=== PATIENT | male | born 1990 | race African-American/Black ===

== ENCOUNTER 2020-12-30 05:37 | Emergency (ER) | payer MEDICAID, OTHER ==
[~2020-12-30] VITALS: Ht 177.8 cm; Wt 100.0 kg
[2020-12-30 05:57] VITALS: BP 148/55
[2020-12-30 08:15] LABS: BASOPHILS % 0.5 % (0.0-2.0); EOSINOPHILS % 2.4 % (0.0-5.0); HEMATOCRIT. 45.9 % (42.0-52.0); HEMOGLOBIN. 14.9 g/dL (14.0-18.0); LYMPHOCYTES % 33.8 % (20.0-50.0); MEAN CORPUSCULAR HEMOGLOBIN 28.6 pg (28.0-32.0); MEAN CORPUSCULAR VOLUME 87.7 fL (80.0-94.0); MEAN PLATELET VOLUME 8.3 fl (7.4-10.4); MONOCYTES % 8.4 % (2.0-8.0); NEUTROPHILS % 54.9 % (40.0-76.0); PLATELET 247 x1000/uL (130-400); RED BLOOD CELL COUNT 5.23 mill/uL (4.7-6.1); RED CELL DISTRIBUTION WIDTH 15.4 % (11.6-14.6)
[2020-12-30 08:19] LABS: CHLORIDE 104 mEq/L (98-107)
== END 2020-12-30 10:33 | disposition left against medical advice (07) ==
LOC: ER 05:37
DX: R07.89 Other chest pain (principal)
CPT/HCPCS: 36415; 80053; 84484; 85025; 93005; 99284

== ENCOUNTER 2020-12-30 11:10 | Inpatient (IN) | payer MEDICAID ==
[~2020-12-30] VITALS: Ht 175.3 cm; Wt 100.2 kg
[2020-12-30 12:27] LABS: BASOPHILS % 0.3 % (0.0-2.0); EOSINOPHILS % 0.7 % (0.0-5.0); HEMATOCRIT. 43.4 % (42.0-52.0); HEMOGLOBIN. 14.4 g/dL (14.0-18.0); LYMPHOCYTES % 25.5 % (20.0-50.0); MEAN CORPUSCULAR HEMOGLOBIN 31.2 pg (28.0-32.0); MEAN PLATELET VOLUME 8.6 fl (7.4-10.4); MONOCYTES % 9.8 % (2.0-8.0); NEUTROPHILS % 63.7 % (40.0-76.0); PLATELET 293 x1000/uL (130-400); RED BLOOD CELL COUNT 4.62 mill/uL (4.7-6.1); RED CELL DISTRIBUTION WIDTH 14.9 % (11.6-14.6)
[2020-12-30 12:33] LABS: CHLORIDE 104 mEq/L (98-107)
[2020-12-30] MEDS ORDERED: ENOXAPARIN 100MG/ML SYR SUBCUT ONE (13:00)
[2020-12-30] MEDS ORDERED: NITROGLYCERIN 0.4MG TABLET SL SL ONE (13:00)
[2020-12-30] MEDS ORDERED: ASPIRIN 81MG TABLET PO ONE (13:15)
[2020-12-30] MEDS ORDERED: POTASSIUM CHLORIDE 20MEQ TABLET SR PO NR (14:00)
[2020-12-30 14:31] LABS: CLARITY URINE CLEAR (CLEAR); COLOR URINE DARK YELLOW (YELLOW); KETONES URINE 1+ (NEGATIVE); LEUKOCYTE ESTERASE URINE NEGATIVE (NEGATIVE); NITRITE URINE NEGATIVE (NEGATIVE); OCCULT BLOOD URINE NEGATIVE (NEGATIVE); PH URINE 5.5 (4.5-8.0); PROTEIN URINE 2+ (NEGATIVE); SPECIFIC GRAVITY URINE 1.035 (1.005-1.030)
[2020-12-30 14:54] LABS: *AMPHETAMINES SCREEN URINE PRESUMTIVE POSITIVE (NEGATIVE); *BARBITURATES SCREEN URINE NEGATIVE (NEGATIVE); *BENZODIAZEPINES SCREEN URINE NEGATIVE (NEGATIVE); CANNABINOID URINE SCREEN PRESUMTIVE POSITIVE (NEGATIVE); OPIATES URINE SCREEN NEGATIVE (NEGATIVE); PHENCYCLIDINE URINE SCREEN PRESUMTIVE POSITIVE (NEGATIVE)
[2020-12-30 14:55] LABS: *COCAINE SCREEN URINE NEGATIVE (NEGATIVE); METHADONE URINE SCREEN NEGATIVE (NEGATIVE)
[2020-12-30] MEDS ORDERED: FUROSEMIDE 20MG TABLET PO SCH (15:00)
[2020-12-30] MEDS ORDERED: MAGNESIUM/ALUMINUM HYDROXIDE/SIMETHICONE 30ML UDC PO PRN (15:30)
[2020-12-30] MEDS ORDERED: GUAIFENESIN 200MG/10ML SUGAR FREE UDC PO PRN (15:30)
[2020-12-30] MEDS ORDERED: IPRATROPIUM/ALBUTEROL 0.5-3(2.5)MG/3ML NEB NEB PRN (15:30)
[2020-12-30] MEDS ORDERED: ONDANSETRON HCL 4MG/2ML INJ IV PRN (15:30)
[2020-12-30] MEDS ORDERED: ZOLPIDEM TARTRATE 5MG TABLET PO PRN (15:30)
[2020-12-30] MEDS ORDERED: KETOROLAC 15MG/ML VIAL IV PRN (15:30)
[2020-12-30] MEDS ORDERED: ENOXAPARIN 40MG/0.4ML SYR SUBCUT SCH (15:30)
[2020-12-30] MEDS ORDERED: CLONIDINE 0.1MG TABLET PO PRN (15:30)
[2020-12-30] MEDS ORDERED: DOCUSATE SODIUM 100MG CAPSULE PO PRN (15:30)
[2020-12-30] MEDS ORDERED: NA PHOS,M-B/NA PHOS,DI-BA ENEMA 118ML PR PRN (15:30)
[2020-12-30] MEDS ORDERED: ACETAMINOPHEN 325MG TABLET PO PRN ×2 (15:30)
[2020-12-30 16:04] LABS: FERRITIN 201 ng/mL (22-322)
[2020-12-30 19:17] LABS: FOLIC ACID (FOLATE) SERUM >20 ng/mL ng/mL (>5.38)
[2020-12-30 19:28] LABS: VITAMIN B12 SERUM 433 pg/mL (211-911)
[2020-12-30 21:00] VITALS: BP 110/49
[2020-12-30] MEDS ORDERED: ENOXAPARIN 100MG/ML SYR SUBCUT SCH (22:30)
[2020-12-30] MEDS: NITROGLYCERIN OINT 1GM/INCH UDPKT TD SCH (22:53)
[2020-12-30] MEDS: FAMOTIDINE 20MG TABLET PO SCH (22:53)
[2020-12-31] VITALS: BP 99/58
[2020-12-31] MEDS ORDERED: ENOXAPARIN 100MG/ML SYR SUBCUT SCH ×2 (01:00→10:00)
[2020-12-31 04:00] VITALS: BP 91/44
[2020-12-31] MEDS: NITROGLYCERIN OINT 1GM/INCH UDPKT TD SCH (06:00)
[2020-12-31 07:28] LABS: BASOPHILS % 0.3 % (0.0-2.0); EOSINOPHILS % 2.2 % (0.0-5.0); HEMATOCRIT. 41.1 % (42.0-52.0); HEMOGLOBIN. 13.7 g/dL (14.0-18.0); LYMPHOCYTES % 32.7 % (20.0-50.0); MEAN CORPUSCULAR HEMOGLOBIN 31.8 pg (28.0-32.0); MEAN CORPUSCULAR VOLUME 95.5 fL (80.0-94.0); MEAN PLATELET VOLUME 8.9 fl (7.4-10.4); MONOCYTES % 10.6 % (2.0-8.0); NEUTROPHILS % 54.2 % (40.0-76.0); PLATELET 269 x1000/uL (130-400); RED BLOOD CELL COUNT 4.31 mill/uL (4.7-6.1); RED CELL DISTRIBUTION WIDTH 15.5 % (11.6-14.6)
[2020-12-31 07:31] LABS: INR 1.1; PROTHROMBIN TIME 11.6 sec (9.6-11.0)
[2020-12-31 07:38] LABS: CHLORIDE 109 mEq/L (98-107)
[2020-12-31 07:47] LABS: PHOSPHORUS 3.5 mg/dL (2.5-4.9)
[2020-12-31] MEDS ORDERED: ASPIRIN 81MG EC TABLET PO SCH (09:00)
[2020-12-31] MEDS: FAMOTIDINE 20MG TABLET PO SCH (09:13)
[2020-12-31] MEDS ORDERED: POTASSIUM CHLORIDE 20MEQ TABLET SR PO NR (09:30)
== END 2020-12-31 10:30 | disposition left against medical advice (07) | DRG 190 ==
LOC: ER 11:10 → 7EST 14:18 → EDBEDREQ 14:20 → EDBEDREQTM 14:20 → EDBEDREQSVC 17:57 → ENRESERV 19:14
PROVIDERS: ADMIT Internal Medicine; ATTEND Internal Medicine
DX: I21.4 Non-ST elevation (NSTEMI) myocardial infarction (principal); I42.9 Cardiomyopathy, unspecified; I25.10 Atherosclerotic heart disease of native coronary artery without angina pectoris; F10.10 Alcohol abuse, uncomplicated; E87.6 Hypokalemia; E80.6 Other disorders of bilirubin metabolism; F15.10 Other stimulant abuse, uncomplicated; Y90.9 Presence of alcohol in blood, level not specified; T45.516A Underdosing of anticoagulants, initial encounter; R79.89 Other specified abnormal findings of blood chemistry; I51.7 Cardiomegaly; F16.10 Hallucinogen abuse, uncomplicated; F12.10 Cannabis abuse, uncomplicated; Z53.29 Procedure and treatment not carried out because of patient's decision for other reasons; I25.2 Old myocardial infarction; Y92.89 Other specified places as the place of occurrence of the external cause; Z91.19 Patient's noncompliance with other medical treatment and regimen; Z71.51 Drug abuse counseling and surveillance of drug abuser
CPT/HCPCS: 36415; 71045; 80048; 80053; 80061; 80305; 81003; 82607; 82728; 82746; 83036; 83540; 83550; 83735; 83880; 84100; 84484; 85025; 93005; 93970; 99285; J1650

== ENCOUNTER 2021-10-08 21:55 | Inpatient (IN) | payer MEDICAID ==
[~2021-10-08] VITALS: Ht 175.3 cm; Wt 120.7 kg
[2021-10-08 22:51] LABS: BASOPHILS % 0.6 % (0.0-2.0); EOSINOPHILS % 0.9 % (0.0-5.0); HEMATOCRIT. 37.3 % (42.0-52.0); HEMOGLOBIN. 11.9 g/dL (14.0-18.0); LYMPHOCYTES % 24.9 % (20.0-50.0); MEAN CORPUSCULAR HEMOGLOBIN 29.6 pg (28.0-32.0); MEAN PLATELET VOLUME 8.2 fl (7.4-10.4); MONOCYTES % 8.5 % (2.0-8.0); NEUTROPHILS % 65.1 % (40.0-76.0); PLATELET 380 x1000/uL (130-400); RED BLOOD CELL COUNT 4.01 mill/uL (4.7-6.1); RED CELL DISTRIBUTION WIDTH 19.3 % (11.6-14.6)
[2021-10-08] MEDS ORDERED: ASPIRIN 325MG EC TABLET PO ONE (23:00)
[2021-10-08] MEDS ORDERED: FUROSEMIDE 100MG/10ML VIAL IVP ONE (23:00)
[2021-10-08 23:01] LABS: INR 1.4; PROTHROMBIN TIME 14.4 sec (9.6-11.0)
[2021-10-08 23:06] LABS: CHLORIDE 99 mEq/L (98-107)
[2021-10-08 23:16] LABS: ETHANOL BLOOD < 10 mg/dL
[2021-10-08] MEDS ORDERED: MORPHINE SULFATE 4 MG/ML CPJ (NOT FOR IM USE) IV ONE (23:30)
[2021-10-09] VITALS (8 sets, daily range): BP systolic 23–156; BP diastolic 34–92
[2021-10-09 00:28] LABS: CLARITY URINE CLEAR (CLEAR); COLOR URINE YELLOW (YELLOW); KETONES URINE NEGATIVE (NEGATIVE); LEUKOCYTE ESTERASE URINE NEGATIVE (NEGATIVE); NITRITE URINE NEGATIVE (NEGATIVE); OCCULT BLOOD URINE NEGATIVE (NEGATIVE); PROTEIN URINE 1+ (NEGATIVE); SPECIFIC GRAVITY URINE 1.018 (1.005-1.030)
[2021-10-09 00:48] LABS: *AMPHETAMINES SCREEN URINE PRESUMTIVE POSITIVE (NEGATIVE); *BARBITURATES SCREEN URINE NEGATIVE (NEGATIVE); *BENZODIAZEPINES SCREEN URINE NEGATIVE (NEGATIVE); *COCAINE SCREEN URINE NEGATIVE (NEGATIVE); CANNABINOID URINE SCREEN PRESUMTIVE POSITIVE (NEGATIVE); METHADONE URINE SCREEN NEGATIVE (NEGATIVE); OPIATES URINE SCREEN NEGATIVE (NEGATIVE); PHENCYCLIDINE URINE SCREEN NEGATIVE (NEGATIVE)
[2021-10-09] MEDS ORDERED: MORPHINE SULFATE 2 MG/ML CPJ (NOT FOR IM USE) IV NR (08:30)
[2021-10-09] MEDS ORDERED: MAGNESIUM/ALUMINUM HYDROXIDE/SIMETHICONE 30ML UDC PO PRN (09:30)
[2021-10-09] MEDS ORDERED: DOCUSATE SODIUM 100MG CAPSULE PO PRN (09:30)
[2021-10-09] MEDS ORDERED: IPRATROPIUM/ALBUTEROL 0.5-3(2.5)MG/3ML NEB HHN PRN (09:30)
[2021-10-09] MEDS ORDERED: ENOXAPARIN 40MG/0.4ML SYR SUBCUT SCH (09:30)
[2021-10-09] MEDS ORDERED: CLONIDINE 0.1MG TABLET PO PRN (09:30)
[2021-10-09] MEDS ORDERED: ACETAMINOPHEN 325MG TABLET PO PRN (09:30)
[2021-10-09] MEDS: FUROSEMIDE 40MG/4ML VIAL IVP SCH (11:02)
[2021-10-09] MEDS ORDERED: FURO80TA3 MT (11:10)
[2021-10-09] MEDS ORDERED: RIVA20TA MT (11:10)
[2021-10-09] MEDS: HYDROCODONE/ACETAMINOPHEN 5/325MG TABLET PO PRN (11:19)
[2021-10-09] MEDS ORDERED: ONDANSETRON HCL 4MG/2ML INJ IV PRN (17:30)
[2021-10-09] MEDS: ONDANSETRON HCL 4MG/2ML INJ IV PRN ×2 (17:34→23:01)
[2021-10-09] MEDS: MORPHINE SULFATE 2 MG/ML CPJ (NOT FOR IM USE) IV PRN ×2 (17:34→23:02)
[2021-10-09] MEDS: CARVEDILOL 6.25 MG TABLET PO SCH (20:27)
[2021-10-09] MEDS ORDERED: NALOXONE HCL 0.4MG/ML VIAL IV PRN (21:45)
[2021-10-10] VITALS (29 sets, daily range): BP systolic 94–180; BP diastolic 28–106
[2021-10-10] MEDS: MORPHINE SULFATE 2 MG/ML CPJ (NOT FOR IM USE) IV PRN ×5 (03:00→22:46)
[2021-10-10] MEDS: DEXTROSE 50% WATER 50ML SYRINGE IV PRN ×2 (05:05→05:39)
[2021-10-10] MEDS ORDERED: DEXT 10% WATER 1,000 ML IV SCH (06:00)
[2021-10-10 06:25] LABS: BASOPHILS % 0.6 % (0.0-2.0); EOSINOPHILS % 0.5 % (0.0-5.0); HEMATOCRIT. 40.3 % (42.0-52.0); HEMOGLOBIN. 12.9 g/dL (14.0-18.0); LYMPHOCYTES % 15.7 % (20.0-50.0); MEAN CORPUSCULAR HEMOGLOBIN 29.8 pg (28.0-32.0); MEAN CORPUSCULAR VOLUME 93.2 fL (80.0-94.0); MEAN PLATELET VOLUME 8.3 fl (7.4-10.4); MONOCYTES % 4.8 % (2.0-8.0); NEUTROPHILS % 78.4 % (40.0-76.0); PLATELET 327 x1000/uL (130-400); RED BLOOD CELL COUNT 4.33 mill/uL (4.7-6.1); RED CELL DISTRIBUTION WIDTH 19.2 % (11.6-14.6)
[2021-10-10 06:58] LABS: PHOSPHORUS 5.5 mg/dL (2.5-4.9); T4 FREE 1.18 ng/dL (0.76-1.46)
[2021-10-10] MEDS: FUROSEMIDE 40MG/4ML VIAL IVP SCH (08:15)
[2021-10-10] MEDS: CARVEDILOL 6.25 MG TABLET PO SCH ×2 (08:15→20:56)
[2021-10-10] MEDS: ONDANSETRON HCL 4MG/2ML INJ IV PRN ×2 (08:18→21:23)
[2021-10-10] MEDS ORDERED: ENOXAPARIN 40MG/0.4ML SYR SUBCUT SCH (09:00)
[2021-10-10] MEDS ORDERED: SODIUM BICARBONATE 8.4% 1 MEQ/ML 50ML SYR IV NR (11:24)
[2021-10-10] MEDS ORDERED: DEXTROSE 50% WATER 50ML SYRINGE IV STA (11:24)
[2021-10-10] MEDS ORDERED: INSULIN REGULAR (HUMULIN R) 300UNITS/3ML VIAL IV NR (11:24)
[2021-10-10] MEDS ORDERED: SODIUM POLYSTYRENE SULFONATE 15 G/60 ML BOT PO NR (11:30)
[2021-10-10] MEDS: DEXT 10% WATER 1,000 ML IV SCH (12:00)
[2021-10-10] MEDS ORDERED: CALCIUM CHLORIDE 1,000 MG in DEXT 5% WATER 90 ML IV NR (12:00)
[2021-10-10] MEDS ORDERED: LIDOCAINE HCL 1% 10 MG/ML 10ML VIAL ONE (12:13)
[2021-10-10] MEDS ORDERED: HEPARIN 1000 UNITS/ML 10ML ONE (12:13)
[2021-10-10 12:33] LABS: BG CARBOXYHEMOGLOBIN 0.9 % (0.5-1.5); BG DEOXYHEMOGLOBIN 5.7 % (0.0-5.0); BG FRACTION INSPIRED OXYGEN 21; BG HCO3 ACT 23.3 mmol/L (22.0-26.0); BG METHEMOGLOBIN 0.3 % (0.0-1.5); BG OXYGEN SATURATION 94.2 % (92.0-98.5); BG OXYHEMOGLOBIN 93.1 % (94.0-97.0); BG PCO2 34.1 mmHg (35.0-45.0); BG PH 7.453 (7.350-7.450); BG PO2 76.1 mmHg (75.0-100.0); BG SAMPLE SITE RIGHT RADIAL; BG TOTAL HEMOGLOBIN 13.9 g/dL (12.0-18.0); BG VENT MODE ROOM AIR
[2021-10-10 16:42] LABS: HEPATITIS B SURFACE ANTIGEN NEGATIVE
[2021-10-10] MEDS: PIPERACILLIN/TAZOBACTAM 3.375 G in DEXTROSE 5% WATER 50 ML IV SCH ×2 (18:14→22:33)
[2021-10-10] MEDS: HYDROCODONE/ACETAMINOPHEN 5/325MG TABLET PO PRN (20:57)
[2021-10-11] VITALS (23 sets, daily range): BP systolic 62–139; BP diastolic 24–98
[2021-10-11] MEDS: MORPHINE SULFATE 2 MG/ML CPJ (NOT FOR IM USE) IV PRN ×6 (02:18→23:25)
[2021-10-11 06:11] LABS: BASOPHILS % 0.2 % (0.0-2.0); EOSINOPHILS % 0.3 % (0.0-5.0); HEMATOCRIT. 37.1 % (42.0-52.0); HEMOGLOBIN. 11.5 g/dL (14.0-18.0); LYMPHOCYTES % 17.4 % (20.0-50.0); MEAN CORPUSCULAR HEMOGLOBIN 28.8 pg (28.0-32.0); MEAN CORPUSCULAR VOLUME 92.5 fL (80.0-94.0); MEAN PLATELET VOLUME 8.2 fl (7.4-10.4); MONOCYTES % 6.9 % (2.0-8.0); NEUTROPHILS % 75.2 % (40.0-76.0); PLATELET 310 x1000/uL (130-400); RED BLOOD CELL COUNT 4.01 mill/uL (4.7-6.1); RED CELL DISTRIBUTION WIDTH 18.8 % (11.6-14.6)
[2021-10-11] MEDS: PIPERACILLIN/TAZOBACTAM 3.375 G in DEXTROSE 5% WATER 50 ML IV SCH ×3 (06:16→21:36)
[2021-10-11] MEDS: DEXT 10% WATER 1,000 ML IV SCH (08:05)
[2021-10-11] MEDS: CARVEDILOL 6.25 MG TABLET PO SCH ×2 (09:07→21:36)
[2021-10-11] MEDS: ENOXAPARIN 30MG/0.3ML SYR SUBCUT SCH ×2 (09:07→21:36)
[2021-10-11] MEDS ORDERED: METHYLPREDNISOLONE SOD SUCC 40 MG/ML VIAL IV SCH (09:45)
[2021-10-11] MEDS: FUROSEMIDE 40MG/4ML VIAL IVP SCH ×2 (10:15→17:20)
[2021-10-11] MEDS: BLOOD SUGAR DIAGNOSTIC STRIP TEST SCH ×2 (20:27→23:33)
[2021-10-12] VITALS (13 sets, daily range): BP systolic 53–168; BP diastolic 27–85
[2021-10-12] MEDS: BLOOD SUGAR DIAGNOSTIC STRIP TEST SCH ×5 (04:00→20:47)
[2021-10-12] MEDS: MORPHINE SULFATE 2 MG/ML CPJ (NOT FOR IM USE) IV PRN ×5 (04:03→23:16)
[2021-10-12] MEDS: PIPERACILLIN/TAZOBACTAM 3.375 G in DEXTROSE 5% WATER 50 ML IV SCH ×3 (05:41→21:09)
[2021-10-12 06:11] LABS: BASOPHILS % 0.1 % (0.0-2.0); HEMATOCRIT. 35.9 % (42.0-52.0); HEMOGLOBIN. 11.4 g/dL (14.0-18.0); LYMPHOCYTES % 10.2 % (20.0-50.0); MEAN CORPUSCULAR VOLUME 91.1 fL (80.0-94.0); MEAN PLATELET VOLUME 8.4 fl (7.4-10.4); MONOCYTES % 5.6 % (2.0-8.0); NEUTROPHILS % 84.1 % (40.0-76.0); PLATELET 284 x1000/uL (130-400); RED BLOOD CELL COUNT 3.94 mill/uL (4.7-6.1); RED CELL DISTRIBUTION WIDTH 19.3 % (11.6-14.6)
[2021-10-12 06:31] LABS: CHLORIDE 87 mEq/L (98-107); TOTAL IRON BINDING CAPACITY 435 ug/dL (250-450)
[2021-10-12 06:41] LABS: FERRITIN 131 ng/mL (22-322)
[2021-10-12 06:54] LABS: VITAMIN B12 SERUM >2000 pg/mL pg/mL (211-911)
[2021-10-12] MEDS: DEXT 10% WATER 1,000 ML IV SCH (08:00)
[2021-10-12] MEDS: FUROSEMIDE 40MG/4ML VIAL IVP SCH ×2 (08:45→16:46)
[2021-10-12] MEDS: ENOXAPARIN 30MG/0.3ML SYR SUBCUT SCH ×2 (08:45→21:13)
[2021-10-12] MEDS: CARVEDILOL 6.25 MG TABLET PO SCH ×2 (08:46→21:00)
[2021-10-12] MEDS: HYDROCODONE/ACETAMINOPHEN 5/325MG TABLET PO PRN (21:09)
[2021-10-13] VITALS: BP 147/92
[2021-10-13] MEDS: BLOOD SUGAR DIAGNOSTIC STRIP TEST SCH ×6 (00:48→20:00)
[2021-10-13 04:00] VITALS: BP 104/75
[2021-10-13] MEDS: MORPHINE SULFATE 2 MG/ML CPJ (NOT FOR IM USE) IV PRN ×7 (04:31→23:31)
[2021-10-13] MEDS: PIPERACILLIN/TAZOBACTAM 3.375 G in DEXTROSE 5% WATER 50 ML IV SCH ×3 (06:00→23:34)
[2021-10-13] MEDS ORDERED: *PATIENT'S OWN MEDICATION STORAGE XX SCH (07:15)
[2021-10-13 08:00] VITALS: BP 134/83
[2021-10-13] MEDS: DEXT 10% WATER 1,000 ML IV SCH (08:00)
[2021-10-13] MEDS: ENOXAPARIN 30MG/0.3ML SYR SUBCUT SCH ×2 (08:55→23:41)
[2021-10-13] MEDS: CARVEDILOL 6.25 MG TABLET PO SCH ×2 (08:55→23:30)
[2021-10-13] MEDS: FUROSEMIDE 40MG/4ML VIAL IVP SCH ×2 (08:56→15:41)
[2021-10-13] MEDS: IRON SUCROSE COMPLEX 100 MG/5 ML ML IV SCH (12:00)
[2021-10-13] MEDS: HYDROCODONE/ACETAMINOPHEN 5/325MG TABLET PO PRN ×2 (15:51→16:45)
[2021-10-13 20:00] VITALS: BP 136/85
[2021-10-13 20:58] LABS: BASOPHILS % 0.2 % (0.0-2.0); EOSINOPHILS % 0.2 % (0.0-5.0); HEMATOCRIT. 35.5 % (42.0-52.0); HEMOGLOBIN. 11.4 g/dL (14.0-18.0); LYMPHOCYTES % 21.2 % (20.0-50.0); MEAN CORPUSCULAR HEMOGLOBIN 29.3 pg (28.0-32.0); MEAN CORPUSCULAR VOLUME 91.1 fL (80.0-94.0); MEAN PLATELET VOLUME 8.4 fl (7.4-10.4); MONOCYTES % 9.3 % (2.0-8.0); NEUTROPHILS % 69.1 % (40.0-76.0); PLATELET 291 x1000/uL (130-400)
[2021-10-13 21:09] LABS: CHLORIDE 87 mEq/L (98-107)
[2021-10-13 21:21] LABS: CREATINE KINASE 171 IU/L (39-308)
[2021-10-14] VITALS: BP 125/82
[2021-10-14 04:00] VITALS: BP 108/74
[2021-10-14] MEDS: BLOOD SUGAR DIAGNOSTIC STRIP TEST SCH ×6 (04:00→20:00)
[2021-10-14] MEDS: MORPHINE SULFATE 2 MG/ML CPJ (NOT FOR IM USE) IV PRN ×3 (05:26→14:39)
[2021-10-14] MEDS: PIPERACILLIN/TAZOBACTAM 3.375 G in DEXTROSE 5% WATER 50 ML IV SCH ×3 (05:26→21:23)
[2021-10-14 06:24] LABS: BASOPHILS % 0.1 % (0.0-2.0); EOSINOPHILS % 0.6 % (0.0-5.0); HEMATOCRIT. 36.4 % (42.0-52.0); HEMOGLOBIN. 11.9 g/dL (14.0-18.0); LYMPHOCYTES % 25.3 % (20.0-50.0); MEAN CORPUSCULAR HEMOGLOBIN 29.5 pg (28.0-32.0); MEAN CORPUSCULAR VOLUME 90.2 fL (80.0-94.0); MEAN PLATELET VOLUME 8.6 fl (7.4-10.4); MONOCYTES % 10.8 % (2.0-8.0); NEUTROPHILS % 63.2 % (40.0-76.0); PLATELET 294 x1000/uL (130-400); RED BLOOD CELL COUNT 4.04 mill/uL (4.7-6.1)
[2021-10-14 07:26] LABS: CHLORIDE 90 mEq/L (98-107)
[2021-10-14 08:00] VITALS: BP 132/82
[2021-10-14] MEDS: FUROSEMIDE 40MG/4ML VIAL IVP SCH ×2 (08:48→17:12)
[2021-10-14] MEDS: CARVEDILOL 6.25 MG TABLET PO SCH ×2 (08:48→21:23)
[2021-10-14] MEDS: DEXT 10% WATER 1,000 ML IV SCH (08:49)
[2021-10-14] MEDS: ENOXAPARIN 30MG/0.3ML SYR SUBCUT SCH ×2 (08:49→21:23)
[2021-10-14] MEDS: IRON SUCROSE COMPLEX 100 MG/5 ML ML IV SCH (11:20)
[2021-10-14 12:00] VITALS: BP 122/74
[2021-10-14 16:00] VITALS: BP 149/60
[2021-10-14] MEDS: HYDROCODONE/ACETAMINOPHEN 5/325MG TABLET PO PRN (18:32)
[2021-10-14 20:00] VITALS: BP 116/70
[2021-10-14] MEDS ORDERED: NALOXONE HCL 0.4MG/ML VIAL IV PRN (22:00)
[2021-10-15] VITALS: BP 138/85
[2021-10-15] MEDS: BLOOD SUGAR DIAGNOSTIC STRIP TEST SCH ×6 (00:03→20:00)
[2021-10-15] MEDS: HYDROCODONE/ACETAMINOPHEN 5/325MG TABLET PO PRN ×3 (00:22→19:25)
[2021-10-15 04:00] VITALS: BP 110/86
[2021-10-15] MEDS: PIPERACILLIN/TAZOBACTAM 3.375 G in DEXTROSE 5% WATER 50 ML IV SCH (05:49)
[2021-10-15 08:00] VITALS: BP 108/78
[2021-10-15] MEDS: DEXT 10% WATER 1,000 ML IV SCH (08:00)
[2021-10-15] MEDS ORDERED: LORAZEPAM 1MG TABLET PO NR (08:00)
[2021-10-15] MEDS: CARVEDILOL 6.25 MG TABLET PO SCH ×2 (10:13→20:10)
[2021-10-15] MEDS: FUROSEMIDE 40MG/4ML VIAL IVP SCH ×2 (10:14→17:04)
[2021-10-15] MEDS: ENOXAPARIN 30MG/0.3ML SYR SUBCUT SCH ×2 (10:14→20:13)
[2021-10-15 12:00] VITALS: BP 113/68
[2021-10-15] MEDS: IRON SUCROSE COMPLEX 100 MG/5 ML ML IV SCH (13:49)
[2021-10-15 14:25] LABS: BASOPHILS % 0.2 % (0.0-2.0); EOSINOPHILS % 0.6 % (0.0-5.0); HEMATOCRIT. 36.5 % (42.0-52.0); HEMOGLOBIN. 11.9 g/dL (14.0-18.0); LYMPHOCYTES % 24.4 % (20.0-50.0); MEAN CORPUSCULAR HEMOGLOBIN 29.4 pg (28.0-32.0); MEAN CORPUSCULAR VOLUME 90.2 fL (80.0-94.0); MEAN PLATELET VOLUME 8.5 fl (7.4-10.4); NEUTROPHILS % 66.8 % (40.0-76.0); PLATELET 273 x1000/uL (130-400); RED BLOOD CELL COUNT 4.05 mill/uL (4.7-6.1); RED CELL DISTRIBUTION WIDTH 19.3 % (11.6-14.6)
[2021-10-15 14:55] LABS: CHLORIDE 92 mEq/L (98-107)
[2021-10-15 15:43] VITALS: BP 123/8
[2021-10-15] MEDS ORDERED: POTASSIUM CHLORIDE 20MEQ/PACKET PO NR (16:30)
[2021-10-15 20:00] VITALS: BP 109/70
[2021-10-16] VITALS: BP 113/76
[2021-10-16] MEDS: HYDROCODONE/ACETAMINOPHEN 5/325MG TABLET PO PRN ×3 (01:22→15:55)
[2021-10-16 04:00] VITALS: BP 134/77
[2021-10-16] MEDS: BLOOD SUGAR DIAGNOSTIC STRIP TEST SCH ×6 (04:00→20:00)
[2021-10-16] MEDS: FUROSEMIDE 40MG/4ML VIAL IVP SCH ×2 (09:34→17:00)
[2021-10-16] MEDS: CARVEDILOL 6.25 MG TABLET PO SCH ×2 (09:34→20:15)
[2021-10-16] MEDS: ENOXAPARIN 30MG/0.3ML SYR SUBCUT SCH ×2 (09:35→20:16)
[2021-10-16] MEDS ORDERED: FURO80TA3 MT (14:25)
[2021-10-16] MEDS ORDERED: COR6 PO (14:25)
[2021-10-16] MEDS ORDERED: RIVA20TA MT (14:25)
[2021-10-16 14:46] LABS: BASOPHILS % 0.5 % (0.0-2.0); EOSINOPHILS % 1.2 % (0.0-5.0); HEMATOCRIT. 36.5 % (42.0-52.0); HEMOGLOBIN. 11.9 g/dL (14.0-18.0); LYMPHOCYTES % 21.7 % (20.0-50.0); MEAN CORPUSCULAR HEMOGLOBIN 29.6 pg (28.0-32.0); MEAN PLATELET VOLUME 8.6 fl (7.4-10.4); MONOCYTES % 8.1 % (2.0-8.0); NEUTROPHILS % 68.5 % (40.0-76.0); PLATELET 263 x1000/uL (130-400); RED BLOOD CELL COUNT 4.01 mill/uL (4.7-6.1); RED CELL DISTRIBUTION WIDTH 19.1 % (11.6-14.6)
[2021-10-16 14:55] LABS: CHLORIDE 92 mEq/L (98-107)
[2021-10-16 20:01] VITALS: BP 89/63
[2021-10-17] VITALS: BP 118/78
[2021-10-17] MEDS: HYDROCODONE/ACETAMINOPHEN 5/325MG TABLET PO PRN ×2 (01:15→08:13)
[2021-10-17 04:00] VITALS: BP 135/86
[2021-10-17] MEDS: BLOOD SUGAR DIAGNOSTIC STRIP TEST SCH ×3 (04:00→08:14)
[2021-10-17 06:36] VITALS: BP_SYST 135; BP_SYST 137; BP_DIAS 86; BP_DIAS 91
[2021-10-17 08:00] VITALS: BP 137/91
[2021-10-17 08:13] VITALS: BP 137/91
[2021-10-17] MEDS: FUROSEMIDE 40MG/4ML VIAL IVP SCH (08:14)
[2021-10-17] MEDS: CARVEDILOL 6.25 MG TABLET PO SCH (08:14)
[2021-10-17] MEDS: ENOXAPARIN 30MG/0.3ML SYR SUBCUT SCH (08:14)
== END 2021-10-17 10:58 | disposition home or self-care (01) | DRG 194 ==
LOC: ER 21:55 → 5EST 10-09 03:29 → ENRESERV 10-09 07:39 → 5EST 10-09 12:40 → CVICU 10-10 16:24 → 8WST 10-12 20:35
PROVIDERS: ADMIT Internal Medicine; ATTEND Internal Medicine
PROC: 5A09357 Assistance with Respiratory Ventilation, Less than 24 Consecutive Hours, Continuous Positive Airway Pressure (ICD-10-PCS; principal; 2021-10-09)
PROC: 05HM33Z Insertion of Infusion Device into Right Internal Jugular Vein, Percutaneous Approach (ICD-10-PCS; 2021-10-10)
PROC: 5A1D70Z Performance of Urinary Filtration, Intermittent, Less than 6 Hours Per Day (ICD-10-PCS; 2021-10-10)
DX: I13.0 Hypertensive heart and chronic kidney disease with heart failure and stage 1 through stage 4 chronic kidney disease, or unspecified chronic kidney disease (principal); J96.01 Acute respiratory failure with hypoxia; E87.2 Acidosis; E44.1 Mild protein-calorie malnutrition; N17.9 Acute kidney failure, unspecified; K81.0 Acute cholecystitis; I27.20 Pulmonary hypertension, unspecified; E66.2 Morbid (severe) obesity with alveolar hypoventilation; E83.39 Other disorders of phosphorus metabolism; E11.649 Type 2 diabetes mellitus with hypoglycemia without coma; D63.1 Anemia in chronic kidney disease; E87.1 Hypo-osmolality and hyponatremia; K83.8 Other specified diseases of biliary tract; Z20.822 Contact with and (suspected) exposure to COVID-19; E88.09 Other disorders of plasma-protein metabolism, not elsewhere classified; I42.9 Cardiomyopathy, unspecified; I50.43 Acute on chronic combined systolic (congestive) and diastolic (congestive) heart failure; J84.9 Interstitial pulmonary disease, unspecified; R74.01 Elevation of levels of liver transaminase levels; E87.5 Hyperkalemia; J68.0 Bronchitis and pneumonitis due to chemicals, gases, fumes and vapors; N18.9 Chronic kidney disease, unspecified; D72.829 Elevated white blood cell count, unspecified; E11.22 Type 2 diabetes mellitus with diabetic chronic kidney disease; F15.10 Other stimulant abuse, uncomplicated; I25.10 Atherosclerotic heart disease of native coronary artery without angina pectoris; F12.10 Cannabis abuse, uncomplicated; I25.2 Old myocardial infarction; Z91.419 Personal history of unspecified adult abuse; Z87.891 Personal history of nicotine dependence; Z91.14 Patient's other noncompliance with medication regimen; Z68.39 Body mass index [BMI] 39.0-39.9, adult; Z91.19 Patient's noncompliance with other medical treatment and regimen
CPT/HCPCS: 36415; 36556; 36600; 71045; 76700; 76937; 78227; 80048; 80053; 80061; 80076; 80305; 80320; 81003; 82248; 82375; 82533; 82550; 82607; 82728; 82746; 82805; 82962; 83036; 83540; 83550; 83735; 83880; 83930; 84100; 84439; 84443; 84484; 85025; 85044; 86705; 86709; 86803; 87340; 87426; 93005; 93306; 93970; 94640; 94660; 99285; A9537; C1752; C1760; C9803; J1644; J1650; J1940; J2270; J2405; J2543; J2920; J3490; J7060; G0480